=== PATIENT | male | born 1960 | race Caucasian/White ===

== ENCOUNTER → 2019-09-19 08:04 | Outpatient (CLI) | payer OTHER, SELFPAY ==
--- NOTE | ~2019-09-19 | MR_ITS ---
EXAMINATION: MR cervical spine wo con DATE: 09/19/2019 08:54 INDICATION: Cervicalgia. TECHNIQUE: Magnetic resonance imaging (MRI) of the cervical spine was performed without intravenous c ontrast. Sequences included sagittal T2-weighted FSE, sagittal T2-weighted FS FSE, sagittal T1-weight ed FSE, axial MERGE and axial T2-weighted FSE. COMPARISON: None FINDINGS: No interval change in a slight kyphosis of the cervical spine and 2 mm retrolisthesis of C6 on C7. Un changed minimal chronic anterior wedging of C6. Vertebral body heights are otherwise normal. Normal b one marrow signal throughout. Mild disc height loss at C5-C6 and moderate to severe disc height loss at C6-C7. Cord signal intensity is normal. The following disc levels are specifically discussed: C2-C3: Disc is mildly bulging. There is no uncovertebral joint osteoarthritis. There is mild right fa cet joint osteoarthritis. There is no neural foraminal stenosis. There is no central canal stenosis. C3-C4: Annular fissure and unchanged small central disc protrusion There is mild left uncovertebral j oint osteoarthritis. There is no facet joint osteoarthritis. There is no neural foraminal stenosis. T here is mild central canal stenosis. C4-C5: Disc is mildly bulging. There is no uncovertebral joint osteoarthritis. There is mild bilatera l facet joint osteoarthritis. There is no neural foraminal stenosis. There is mild central canal sten osis. C5-C6: Disc is bulging. There is mild bilateral uncovertebral joint osteoarthritis. There is mild lef t facet joint osteoarthritis. There is no neural foraminal stenosis. There is mild central canal sten osis with mild indentation of the ventral surface of the cord. C6-C7: Disc is bulging. There is moderate bilateral uncovertebral joint osteoarthritis. There is mild left facet joint osteoarthritis. There is mild left and moderate right neural foraminal stenosis. Th ere is mild central canal stenosis with indentation of the central to left side of the ventral surfac e of the cord. C7-T1: The disc does not extend beyond the endplate margin. There is no uncovertebral joint osteoarth ritis. There is moderate right and severe left facet joint osteoarthritis. There is mild bilateral ne ural foraminal stenosis. There is no central canal stenosis. IMPRESSION: 1. Negligible progression in mild upper to mid and severe lower cervical spondylosis. Reviewed, dictated and finalized at location A. IMPRESSION: 1. Negligible progression in mild upper to mid and severe lower cervical spondy losis.
--- NOTE | ~2019-09-19 | XR_ITS ---
XR lumbar spine 2-3V DATE: 09/19/2019 09:01 INDICATION: Low back pain TECHNIQUE: Standing AP, lateral and coned lateral lumbosacral views COMPARISON: None FINDINGS: Diffuse osteopenia. There is mild levoscoliosis. Normal alignment of the lumbar spine. No fracture or bone destruction or spondylolisthesis. The lumba r pedicles are intact. There is moderate loss of interspace height at L4-5 and L5-S1. The sacroiliac joints appear normal. IMPRESSION: Osteopenia Mild levoscoliosis Moderately prominent loss of interspace height at L4-5 and L5-S1 Reviewed, dictated and finalized at location A.
== END ==
PROVIDERS: Visit Provider Internal Medicine
DX: M54.2 Cervicalgia (principal); M54.5 Low back pain; M47.812 Spondylosis without myelopathy or radiculopathy, cervical region; M85.88 Other specified disorders of bone density and structure, other site; M41.86 Other forms of scoliosis, lumbar region; R29.890 Loss of height
CPT/HCPCS: 72100; 72141

== ENCOUNTER 2019-10-10 08:51 | Outpatient (CLI) | payer OTHER, SELFPAY ==
--- NOTE | ~2019-10-10 | DEXA_ITS ---
Bone Density Report Name: Ildefonso Jennings Age: 58 Sex: Male Ethnicity: White Date of : 1960 Indication: osteopenia; prior fracture; Referring Provider: ROB FOSTER Study: Bone densitometry was performed. Exam Date: October 10, 2019 Accession number: [id number] Bone Density: Region BMD T-score Z-score Classification AP Spine (L1, L2, L4) 0.962 -1.1 -0.6 Osteopenia Femoral Neck (Left) 0.958 0.2 1.1 Normal Total Hip (Left) 1.063 0.2 0.6 Normal Total Hip Bilateral Avg 1.120 0.5 1.0 Normal Femoral Neck (Right) 0.998 0.5 1.4 Normal Total Hip (Right) 1.175 0.9 1.3 Normal World Health Organization criteria for BMD impression classify patients as: Normal (T-score at or above -1.0), Osteopenia (T-score between -1.0 and -2.5), or Osteoporosis (T-score at or below -2.5). 10-year Fracture Risk(1): Major Osteoporotic Fracture 6.8% Hip Fracture 0.1% Reported Risk Factors: [place] (), Neck BMD=0.958, BMI=26.4, previous fracture (1) FRAX(R) Version 3.08. Fracture probability calculated for an untreated patient. Fracture probability may be lower if the patient has received treatment. Previous Exams: Region Exam Age BMD T-score BMD Change BMD Change Date g/cm2 vs Baseline vs Previous AP Spine(L1, L2, L4) 10/10/2019 58 0.962 -1.1 -0.002(-0.2%) -0.002(-0.2%) 09/19/2018 57 0.964 -1.1 Total Hip(Left) 10/10/2019 58 1.063 0.2 -0.007(-0.7%) -0.007(-0.7%) 09/19/2018 57 1.070 0.2 Total Hip(Right) 10/10/2019 58 1.175 0.9 0.004(0.3%) 0.004(0.3%) 09/19/2018 57 1.172 0.9 *Denotes significance at 95% confidence level, LSC for AP Spine = 0.022 g/cm2, LSC for Total Hip = 0.027 g/cm2 Clinical Information Provided by Patient: Has had a low trauma fracture Patient maximum height was 71.0 Drinks caffeinated beverages Impression: The patient has low bone mass, based on the Total Spine T-score. The patient has an estimated ten-year risk of hip fracture of 0.1% and an estimated ten-year risk of major fracture of 6.8%, based on the WHO FRAX algorithm. The patient has risk factors, including: previous fracture. No significant bone loss was observed. Discussion: BONE DENSITY IS LOW AT ONE OR MORE SKELETAL SITES. This patient's lowest T-score is low at one or more skeletal sites. It meets the World Health Organization's (WHO) criteria for ?low bone mass? (T-score between -1.0 and -2.5). The patient's 10-year risk
== END 2019-10-10 08:52 | disposition home or self-care (01) ==
PROVIDERS: PCP Internal Medicine; Visit Provider Internal Medicine
DX: M85.88 Other specified disorders of bone density and structure, other site (principal)
CPT/HCPCS: 77080

== ENCOUNTER 2019-10-13 07:45 | Outpatient (CLI) | payer OTHER, SELFPAY ==
--- NOTE | ~2019-10-13 | NM_ITS ---
EXAMINATION: NM stress w perf spect multi DATE: 10/13/2019 10:37 INDICATION: Chest pain, unspecified. TECHNIQUE: Rest images were obtained following intravenous administration of 11 mCi Tc99m tetrofosmin (Myoview). The patient performed an exercise activity. At peak exercise, 32.5 mCi Tc99m tetrofosmin (Myoview) was administered intravenously, and stress images were obtained. Data was reconstructed int o short axis and horizontal and vertical long axis SPECT images. Gated SPECT images were also obtaine d. COMPARISON: Myocardial perfusion imaging 05/18/2014 FINDINGS: There is no definite reversible or fixed perfusion abnormality to suggest ischemia or infar ction. There is no segmental wall motion abnormality. Left ventricular ejection fraction measures > 70%. IMPRESSION: 1. No definite ischemia or infarct. 2. Normal left ventricular ejection fraction measuring >70%. Reviewed, dictated and finalized at location A.
--- NOTE | 2019-10-13 08:31 | EST_ITS ---
Patient Info Name: Ildefonso Jennings Age: 58 years : 1960 Gender: Male Ht: 69 in Wt: 180 lbs BSA: 2.01 m2 Exam Date: 10/13/2019 8:58 AM Exam Location: [facility] Stress Patient Status: Outpatient Admit Date: 10/13/2019 Staff Ordering Physician: Zaki Siddiqui DO Attending Provider: Zaki Siddiqui DO Exercise Technologist: Radha An RDCS Exercise Physician: Christian Sifuentes DO Exam Type: CA stress test treadmill w NM Study Info Indications R07.9 - Chest pain, unspecified A pharmacological stress test was performed. Summary 1. 1. Negative Roberto exercise stress test for ischemic ST changes by ECG criteria. 2. 2. Good functional capacity, achieving 12 METs of workload. 3. 3. Appropriate HR response to exercise. 4. 4. Appropriate HR recovery at 1 minute post exercise. 5. 5. Nuclear scan to follow and will be reported separately. Please correlate with it. 6. 6. Patient informed of the above results. Protocol: Roberto Stress ECG Details Stage: REST Duration (min): 5 min : 45 sec Speed (mph): 0.0 Grade (%): 0 HR (bpm): 64 SBP (mmHg): 122 DBP (mmHg): 82 METS: --- Stage: REST Duration (min): 9 min : 21 sec Speed (mph): 0.0 Grade (%): 0 HR (bpm): 77 SBP (mmHg): 122 DBP (mmHg): 82 METS: --- Stage: STAGE 1 Duration (min): 1 min : 0 sec Speed (mph): 1.7 Grade (%): 10 HR (bpm): 93 SBP (mmHg): 122 DBP (mmHg): 82 METS: --- Stage: STAGE 1 Duration (min): 2 min : 0 sec Speed (mph): 1.7 Grade (%): 10 HR (bpm): 94 SBP (mmHg): 122 DBP (mmHg): 82 METS: --- Stage: STAGE 1 Duration (min): 3 min : 0 sec Speed (mph): 1.7 Grade (%): 10 HR (bpm): 100 SBP (mmHg): 141 DBP (mmHg): 92 METS: --- Stage: STAGE 2 Duration (min): 1 min : 0 sec Speed (mph): 2.5 Grade (%): 12 HR (bpm): 105 SBP (mmHg): 141 DBP (mmHg): 92 METS: --- Stage: STAGE 2 Duration (min): 2 min : 0 sec Speed (mph): 2.5 Grade (%): 12 HR (bpm): 104 SBP (mmHg): 135 DBP (mmHg): 90 METS: --- Stage: STAGE 2 Duration (min): 3 min : 0 sec Speed (mph): 2.5 Grade (%): 12 HR (bpm): 111 SBP (mmHg): 135 DBP (mmHg): 90 METS: --- Stage: STAGE 3 Duration (min): 1 min : 0 sec Speed (mph): 3.4 Grade (%): 14 HR (bpm): 127 SBP (mmHg): 118 DBP (mmHg): 70 METS: --- Stage: STAGE 3 Duration (min): 2 min : 0 sec Speed (mph): 3.4 Grade (%): 14 HR (bpm): 128 SBP (mmHg): 118 DBP (mmHg): 70 METS: --- Stage: STAGE 3 Duration (min): 3 min : 0 sec Speed (mph): 3.4 Grade (%): 14 HR (bpm): 131 SBP (mmHg): 132 DBP (mmHg): 73 METS: --- Stage: STAGE 4 Duration (min): 1 min : 0 sec Speed (mph): 4.2 Grade (%): 16 HR (bpm): 154 SBP (mmHg): 132 DBP (mmHg): 73 METS: --- Stage: STAGE 4
== END 2019-10-13 07:46 | disposition home or self-care (01) ==
PROVIDERS: PCP Internal Medicine; Visit Provider Internal Medicine
DX: R07.9 Chest pain, unspecified (principal)
CPT/HCPCS: 78452; 93017; A9502

== ENCOUNTER → 2019-11-18 10:39 | Outpatient (CLI) | payer OTHER, SELFPAY ==
--- NOTE | ~2019-11-18 | MR_ITS ---
EXAMINATION: MR lumbar spine wo con EXAM DATE: 11/18/2019 11:23 INDICATION: Lumbar radiculopathy. Low back pain. History of scoliosis and bulging discs. TECHNIQUE: Multi-sequential, multiplanar MR images of the lumbar spine were obtained without contrast . Sagittal T1, T2, T2 fat saturation images. Axial T2 weighted images. Correlation is made to lumba r x-ray 09/19/2019. FINDINGS: There is mild to moderate disc disease L4-5 and L5-S1, mild at L2-3 and L3-4. The conus med ullaris terminates at the T12-L1 level and has normal signal intensity and morphology. Large incompl etely imaged left renal cystic lesion, probably a cyst correlating to a prior CT from 2016. There is a 1 cm T1 and T2 hypointense lesion in the L3 vertebral body, could be an atypical hemangioma-no evid ence of osteoblastic lesion and lumbar spine from September. The vertebral bodies are aligned in the AP dimension. Paraspinal soft tissue is unremarkable. Level by level evaluation: T12-L1: Disc does not extend beyond the endplate margin. Facet arthropathy: None. Neural foraminal stenosis: No stenosis. Central canal stenosis: No stenosis. L1-L2: Disc does not extend beyond the endplate margin. Facet arthropathy: None. Neural foraminal stenosis: No stenosis. Central canal stenosis: No stenosis. L2-L3: There is a mild diffuse disc bulge. Facet arthropathy: Mild. Neural foraminal stenosis: No stenosis. Central canal stenosis: No stenosis. L3-L4: There is a mild to moderate diffuse disc bulge. Facet arthropathy: Mild to moderate. Neural foraminal stenosis: Mild bilateral. Central canal stenosis: Mild. L4-L5: There is a mild to moderate diffuse disc bulge, superimposed left central protrusion narrowing lateral recess Facet arthropathy: Mild. Neural foraminal stenosis: Mild to moderate bilateral. Central canal stenosis: Moderate, particularly left lateral recess from the protrusion. L5-S1: There is a mild to moderate diffuse disc bulge. Facet arthropathy: Mild. Neural foraminal stenosis: Moderate left, mild right. Central canal stenosis: Mild. IMPRESSION: 1. L4-5 moderate sized left central protrusion causing mass effect on traversing left L5 nerve root i n the lateral recess. Correlate clinically for muscle weakness of great toe extension and sensory c hange of the medial foot and great toe. 2. Indeterminate L3 bone lesion, statistically most likely atypical hemangioma given no evidence of o steoblastic disease on x-ray 2 months ago and assuming absence of known primary malignancy. Reviewed, dictated and finalized at location B. IMPRESSION: 1. L4-5 moderate sized left central protrusion causing mass effect on traversin g left L5 nerve root in the lateral recess. Correlate clinically for muscle w eakness of great toe extension and sensory change of the medial foot and great toe. 2. Indeterminate L3 bone lesion, statistically most likely atypical hemangioma given no evidence of osteoblastic disease on x-ray 2 months ago and assuming ab sence of known primary malignancy.
== END ==
PROVIDERS: PCP Internal Medicine; Visit Provider Nurse Practitioner
DX: M54.16 Radiculopathy, lumbar region (principal); M51.26 Other intervertebral disc displacement, lumbar region
CPT/HCPCS: 72148

== ENCOUNTER 2020-04-14 08:21 | Outpatient (CLI) | payer BC, SELFPAY ==
--- NOTE | ~2020-04-14 | US_ITS ---
EXAMINATION: US arterial ankle brachial ind DATE: 04/14/2020 09:10 INDICATION: Cold feet. Numbness and pain as well as cramping and spasms at the lower limbs. Facet dis ease risk factors of hypercholesterolemia, hypertension and prior smoking TECHNIQUE: Segmental pressures and plethysmographic and Doppler waveforms of the brachial and lower e xtremity arteries were obtained. COMPARISON: None. FINDINGS: Right and left brachial artery pressures of 122 mm Hg and 118 mm Hg, respectively, are concordant (no rmal difference <= 30 mmHg). The right ankle-brachial index (PARISA) is 1.24 (normal >= 0.9-1.0). The right great toe-brachial index (TBI) is 0.80 (normal >= 0.65). Arterial Doppler waveforms are are triphasic at the right posterior t ibial artery and biphasic at the right dorsalis pedis artery, both with brisk systolic upstrokes. The left PARISA is 1.27. The left TBI is 0.95. Arterial Doppler waveforms are triphasic with brisk systo lic upstrokes at both the left posterior tibial and dorsalis pedis arteries. IMPRESSION: 1. No significant arterial occlusive disease with normal bilateral ABIs and TBIs. Reviewed, dictated and finalized at location B. OR IMPRESSION: 1. No significant arterial occlusive disease with normal bilateral ABIs and TBI s.
== END 2020-04-14 08:22 | disposition home or self-care (01) ==
PROVIDERS: PCP Internal Medicine; Visit Provider Internal Medicine
DX: R25.2 Cramp and spasm (principal)
CPT/HCPCS: 93922

== ENCOUNTER 2020-11-02 00:25 | Day surgery (SDC) | payer BC, SELFPAY ==
[2020-10-22 14:02] VITALS: BMI 24.4
[2020-11-02 08:36] VITALS: BP 116/80; PULSE 66; RESP 16; TEMP 36.4; O2SAT 98; BMI 24.6
[2020-11-02] MEDS: LACTATED RINGERS 1,000 ML 150 ML IV CONT (08:44)
--- NOTE | 2020-11-02 09:06 | WPDGICN ---
Assessment and Plan Assessment and plan (1) History of colon polyps: Code(s): Z86.010 - Personal history of colonic polyps Status: Acute Assessment and Plan: Patient has a history of colon polyp removed by Dr. Gray 2016. Plan is for surveillance exam now and consider this if 5 year intervals in the future. (2) Hemorrhoid: Code(s): K64.9 - Unspecified hemorrhoids Status: Acute Assessment and Plan: Patient has a bump in his anus he attributes to a hemorrhoid he will reduce it on his own. Plan to evaluate this at the time of endoscopy. High-fiber diet advised further recommendations may be given after endoscopy. (3) Nausea: Code(s): R11.0 - Nausea Status: Acute Assessment and Plan: Patient notes vague epigastric discomfort and nausea. He is not acheived relief with acid suppression. Plan is to pursue EGD to assess more thoroughly. Further recommendations will be given after endoscopy. GI Consult Note Consult date/time: 11/02/20 09:06 HPI: Ildefonso Jennings is a 59 year old male Presents for GI endoscopy. Patient reports that he had an adenoma in the colon removed by Dr. Gray in 2017. His current weight appetite bowel movements are normal. He denies any blood in his stools. He does occasionally notice a bump at the anus that he attributes to a hemorrhoid. He wishes to eventually have this removed. family history is significant that his sister had colon polyps. Patient additionally complains of ongoing nausea. He has found minimal relief for this. Feels and empties spot in his stomach. Has tried various antacids with no relief of symptoms. No improvement with Pepcid. He was briefly given a trial of omeprazole but this made his stomach feel worse so he has stopped these medications. Patient presents today for both colonoscopy and EGD. Review of Systems Review of Systems: All systems reviewed & are unremarkable except as noted in HPI and below PMFSH Past Medical History Medical History (Updated 11/02/20 @ 09:08 by Urban Daniel MD) Hypogonadism Family History Family History Father Cerebrovascular accident Family history of malignant neoplasm of stomach Family history of dementia Sibling Acute myocardial infarction Grandparent Cerebrovascular accident Family history of lung cancer Mother Family history of dementia Other Hypertension Social History Social History Smoking status: Never smoker Second hand tobacco smoke exposure: No Alcohol intake: current Alcohol use details: socially Substance use: never Substance use type: does not use Living arrangements: with family Spiritual care concerns: No Meds Home Medications and Allergies Home Medications Medication Instructions Recorded Confirmed Type hydrocodone 5 mg-acetaminophen 325 1 tablet PO Q12H PRN #20 tablet 12/19/19 10/22/20 Rx mg tablet lorazepam 1 mg tablet 1 mg PO DAILY PRN #90 tablet 08/13/20 10/22/20 Rx albuterol sulfate 90 mcg/actuation 1 puff INHALATION Q4H PRN #8.5 g 08/17/20 10/22/20 Rx aerosol inhaler omeprazole 20 mg capsule,delayed 20 mg PO DAILY #30 cap 10/07/20 10/22/20 Rx release benazepril 20 mg PO DAILY 10/22/20 10/22/20 History rosuvastatin 20 mg PO DAILY 10/22/20 10/22/20 History Allergies Allergy/AdvReac Type Severity Reaction Status Date / Time NSAIDS (Non-Steroidal AdvReac Intermediate Upset Verified 11/02/20 08:35 Anti-Inflamma stomach/pain tramadol AdvReac Intermediate Upset Verified 11/02/20 08:35 stomach/pain Vital Signs Vital Signs - 24 hr 11/02/20 08:36 Temperature 97.5 F L Pulse Rate 66 Respiratory Rate 16 Blood Pressure 116/80 Pulse Oximetry 98 Exam Narrative: Physical exam reveals patient to be alert. Vital signs stable. HEENT exam is unremarkable. Pat
--- NOTE | 2020-11-02 09:15 | WPDANESEPPF ---
Anes - Initial Pre Proc Eval Procedure: Operation Date: 11/02/20 09:30 Proposed Procedures p Esophagogastroduodenoscopy & Screening Colonoscopy - Urban Daniel MD Date/Time: 11/02/20 09:15 Surgeon: Urban Daniel MD Pre Op Diagnosis: hx of colon polyps, nausea/epigastric pain Patient Data Age: 59 Gender: M Height: 1.8 m Weight: 80.2 kg Last Vital Signs Temp 97.5 F L 11/02/20 08:36 Pulse 66 11/02/20 08:36 Resp 16 11/02/20 08:36 BP 116/80 11/02/20 08:36 Pulse Ox 98 11/02/20 08:36 Allergies Allergy/AdvReac Type Severity Reaction Status Date / Time NSAIDS (Non-Steroidal AdvReac Intermediate Upset Verified 11/02/20 08:35 Anti-Inflamma stomach/pain tramadol AdvReac Intermediate Upset Verified 11/02/20 08:35 stomach/pain Home Medications Medication Instructions Recorded Confirmed Type hydrocodone 5 mg-acetaminophen 325 1 tablet PO Q12H PRN #20 tablet 12/19/19 10/22/20 Rx mg tablet lorazepam 1 mg tablet 1 mg PO DAILY PRN #90 tablet 08/13/20 10/22/20 Rx albuterol sulfate 90 mcg/actuation 1 puff INHALATION Q4H PRN #8.5 g 08/17/20 10/22/20 Rx aerosol inhaler omeprazole 20 mg capsule,delayed 20 mg PO DAILY #30 cap 10/07/20 10/22/20 Rx release benazepril 20 mg PO DAILY 10/22/20 10/22/20 History rosuvastatin 20 mg PO DAILY 10/22/20 10/22/20 History Patient hx anesthesia problems: none Family hx anesthesia problems: none PMFSH Past Medical History Medical History (Updated 11/02/20 @ 09:08 by Urban Daniel MD) Hypogonadism Family History Family History Father Cerebrovascular accident Family history of malignant neoplasm of stomach Family history of dementia Sibling Acute myocardial infarction Grandparent Cerebrovascular accident Family history of lung cancer Mother Family history of dementia Other Hypertension Social History Social History Smoking status: Never smoker Second hand tobacco smoke exposure: No Alcohol intake: current Alcohol use details: socially Substance use: never Substance use type: does not use Living arrangements: with family Spiritual care concerns: No Anes - Eval Final PreProcedure Day of Procedure 11/02/20 09:15 Patient weight: normal Heart: regular rate and rhythm Lungs: clear to auscultation Airway: Mallampati scale class II Neurological: alert and oriented Last oral intake: >/= 8 hours ASA classification: III Emergent: no Anesthetic plan: proceed Anesthesia type and monitoring: general GIVS and standard monitoring Informed Consent: The patient's anesthetic plan and its attendant risks and benefits were discussed with the patient/family/POA. Questions were solicited and answers provided to the satisfaction of the patient/family/POA.
[2020-11-02 10:19] VITALS: BP 80/49; PULSE 58; RESP 22; O2SAT 99
[2020-11-02 10:29] VITALS: BP 104/76; PULSE 77; RESP 15; O2SAT 100
[2020-11-02 10:39] VITALS: BP 102/74; PULSE 62; RESP 16; O2SAT 100
--- NOTE | 2020-11-02 16:20 | SUR.OPER ---
EGD start time 954. EGD end time 956. Colonoscopy start time 1005. Colonoscopy end time 1015.
== END 2020-11-02 11:15 | disposition home or self-care (01) ==
PROVIDERS: PCP Internal Medicine; Visit Provider Internal Medicine Gastroenterology
PROC: 0DJ08ZZ Inspection of Upper Intestinal Tract, Via Natural or Artificial Opening Endoscopic (ICD-10-PCS; CPT 43235; principal; 2020-11-02 09:30)
DX: Z12.11 Encounter for screening for malignant neoplasm of colon (principal); K63.5 Polyp of colon; K57.30 Diverticulosis of large intestine without perforation or abscess without bleeding; K64.8 Other hemorrhoids; R11.0 Nausea; R10.13 Epigastric pain; E29.1 Testicular hypofunction
CPT/HCPCS: 45385; 43239; 87081; 88305; J2001; J2704; J7120

== ENCOUNTER → 2021-10-26 10:41 | Outpatient (CLI) | payer BC, SELFPAY ==
--- NOTE | ~2021-10-26 | XR_ITS ---
EXAMINATION: XR chest 2V Exam Date/Time: 10/26/2021 11:15 CDT HISTORY: R63.4 - Abnormal weight loss Comparison: 05/18/2014. RESULT: Lines, tubes, and devices: None. Lungs and pleura: Clear. Cardiomediastinal silhouette: Increased density and size of the right hilar region. Other: No acute osseous or upper abdominal finding. IMPRESSION: Questionable right hilar mass, recommend CT of the chest with contrast for further evaluation. Reviewed, dictated and finalized at location K. IMPRESSION: Questionable right hilar mass, recommend CT of the chest with contrast for furt her evaluation.
== END ==
PROVIDERS: PCP Internal Medicine; Visit Provider Internal Medicine
DX: R63.4 Abnormal weight loss (principal)
CPT/HCPCS: 71046

== ENCOUNTER → 2021-11-03 09:18 | Outpatient (CLI) | payer BC, SELFPAY ==
--- NOTE | ~2021-11-03 | CT_ITS ---
EXAMINATION: CT diagnostic chest w con DATE: 11/03/2021 09:43 INDICATION: Possible right hilar mass. TECHNIQUE: Computed tomography (CT) of the chest was performed with 75 cc Omnipaque 350 intravenous c ontrast. The dose-length product was 320.96 mGy-cm. Automated exposure control and iterative reconstr uction technique were employed. COMPARISON: Chest x-ray dated 10/26/[address] abdomen dated 08/30/2016 FINDINGS: Heart size normal. No significant pleural or pericardial effusion. No thoracic lymphadenopa thy. There are multiple large cyst in the partially visualized left kidney. There are calcified granu didi of the spleen. There are calcified granulomas in the mediastinum and right lung, consistent wit h chronic granulomatous disease. No endobronchial lesions. No focal airspace consolidation. No right hilar mass is identified. No pneumothorax. No acute osseous abnormality. IMPRESSION: 1. No evidence for hilar mass. No acute cardiopulmonary disease. Reviewed, dictated and finalized at location A.
== END ==
PROVIDERS: Visit Provider Internal Medicine
DX: R91.8 Other nonspecific abnormal finding of lung field (principal)
CPT/HCPCS: 71260; Q9967

== ENCOUNTER → 2022-04-28 11:55 | Outpatient (CLI) | payer BC, SELFPAY ==
--- NOTE | ~2022-04-28 | MR_ITS ---
EXAMINATION: MR lumbar spine wo/w con DATE: 04/28/2022 12:41 INDICATION: Back pain TECHNIQUE: Magnetic resonance imaging (MRI) of the lumbar spine was performed without intravenous con trast. Sequences included sagittal T2-weighted FSE, sagittal T2-weighted FS FSE, sagittal T1-weighted FSE, and axial T2-weighted FSE. COMPARISON: 11/18/2019 FINDINGS: 15 degree lumbar levoscoliosis. Sagittal alignment is normal. Vertebral body heights are normal. No i nterval change in a region of mild decreased T1 signal in the right side of the L3 vertebral body whi ch remains hyperintense to the discs and skeletal muscle and without other abnormal T2 signal or enha ncement on postcontrast imaging most likely either an atypical hemangioma or more likely small region of increased red marrow. Interval progression of now moderate disc height loss at L4-L5 and with lef t-sided predominance at L5-S1. Mild disc height loss at L2-L3 and L3-L4. The conus medullaris termina anshul at L1. There is normal signal in the caudal spinal cord with no abnormally lesions in the central canal. Paravertebral soft tissues are unremarkable. The following disc levels are specifically discu ssed: T12-L1: The disc does not extend beyond the endplate margin. There is mild bilateral facet joint oste oarthritis. There is no neural foraminal stenosis. There is no central canal stenosis. L1-L2: The disc does not extend beyond the endplate margin. There is mild bilateral facet joint osteo arthritis. There is no neural foraminal stenosis. There is no central canal stenosis. L2-L3: Disc is mildly bulging. There is mild bilateral facet joint osteoarthritis. There is mild bila teral neural foraminal stenosis. There is mild central canal stenosis. L3-L4: Disc is bulging. There is hypertrophy of the ligamentum flavum. There is mild left and modera te right facet joint osteoarthritis with likely reactive mild synovial enhancement about the margins of the right facet joint. There is mild to moderate bilateral neural foraminal stenosis. There is mil d central canal stenosis. L4-L5: Disc is bulging with no significant interval change in a superimposed annular fissure and left paracentral centered disc extrusion which extends 8 mm AP, 9 mm craniocaudally and 1.8 cm from left to right. There is hypertrophy of the ligamentum flavum. There is mild to moderate bilateral facet jimenez int osteoarthritis. There is moderate bilateral neural foraminal stenosis. There is moderate left-james ed predominant central canal stenosis. There is narrowing of the lateral recesses, mild on the right and moderate on the left where it exerts mass effect upon the traversing left L5 nerve root. L5-S1: Disc is bulging with annular fissure. There is moderate bilateral facet joint osteoarthritis. There is mild right and moderate left neural foraminal stenosis. There is mild central canal stenosis . IMPRESSION: 1. Slight interval progression in moderate lumbar spondylosis most notable for prominent left paracen tral disc extrusion at L4-L5 which exerts mass effect upon the traversing left L5 nerve root. Reviewed, dictated and finalized at location B. IMPRESSION: 1. Slight interval progression in moderate lumbar spondylosis most notable for prominent left paracentral disc extrusion at L4-L5 which exerts mass effect upo n the traversing left L5 nerve root.
== END ==
PROVIDERS: PCP Internal Medicine; Visit Provider Internal Medicine
DX: M47.816 Spondylosis without myelopathy or radiculopathy, lumbar region (principal); M54.9 Dorsalgia, unspecified
CPT/HCPCS: 72158; A9577

== ENCOUNTER → 2022-08-17 08:21 | Outpatient (CLI) | payer BC, SELFPAY ==
--- NOTE | ~2022-08-17 | US_ITS ---
Abdominal Sonogram: Real-time sonographic imaging of the abdomen was performed. Clinical History: Nausea Findings: The liver appears echogenic, with no evidence of bile duct dilatation. Suggestion of 1.3 c m several hyperechoic lesion in the central liver, suspicious for small hemangioma. Main portal vein demonstrates normal direction of flow. The spleen is normal in size without evidence of focal lesion. The gallbladder is well distended, and appears normal with no evidence of gallstone or wall thicken ing. The common bile duct measures 4 mm. The visualized pancreas, aorta, and IVC are unremarkable. The right kidney measures 10.7 cm in length and the left kidney measures 16.4 cm. There is no hydron ephrosis or renal calculus. Multiple large left renal cysts are present, at least one of which appear s to have internal septations. Impression: Large left renal cysts, at least one of which appears to have internal septations. Small hyperechoic lesion in the liver, most likely small hemangioma. Reviewed, dictated and finalized at location . Impression: Large left renal cysts, at least one of which appears to have internal septatio ns. Small hyperechoic lesion in the liver, most likely small hemangioma.
== END ==
PROVIDERS: PCP Family Medicine
DX: N28.1 Cyst of kidney, acquired (principal); K76.9 Liver disease, unspecified; R11.0 Nausea
CPT/HCPCS: 76700

== ENCOUNTER 2024-06-14 09:13 | Outpatient (CLI) | payer BC, SELFPAY ==
--- NOTE | ~2024-06-14 | XR_ITS ---
Clinical Indication: Wheezing PA and lateral views of the chest: Comparison: 10/26/2021 Findings: The lungs are clear, without evidence of focal consolidation or pleural effusion. Cardiome diastinal silhouette is within normal limits. Bones and soft tissues are unremarkable. Impression: Normal chest. Reviewed, dictated and finalized at location . Impression: Normal chest.
--- NOTE | ~2024-06-14 | MR_ITS ---
MRI of the lumbar spine Clinical History: Radiculopathy Technique: Axial T2-weighted images, and sagittal T1-weighted, T2-weighted, and T2 fat-sat images wer e acquired. COMPARISON: 04/28/2022 Findings: There is no fracture or sublocation of the lumbar spine. Osseous alignment unchanged. No terra ne marrow signal abnormality seen. At L1-L2, there is no disc bulge or herniation. There is mild facet hypertrophy. No spinal canal sten osis or neural foraminal narrowing. At L2-L3, there is mild disc desiccation. There is moderate facet arthropathy. No central canal steno sis or neural foraminal narrowing. L3-L4, there is mild disc desiccation with minimal disc bulge. There is moderate to advanced facet ar thropathy. No central canal stenosis. There is minimal bilateral neural foraminal narrowing. L4-L5, there is degenerative spurring with mild disc bulge and advanced facet arthropathy. No central canal stenosis. There is moderate to advanced left neural foraminal narrowing, and moderate right ne ural foraminal narrowing. At L5-S1, there is degenerative disc narrowing with mild disc bulge and moderate facet arthropathy. N o central canal stenosis. There is severe left neural foraminal narrowing and minimal right neural fo raminal narrowing. Paravertebral soft tissues are unremarkable. Large partially imaged probable left renal cyst. Impression: Moderate degenerative spondylosis, as detailed above, worst at L4-L5 and L5-S1. Reviewed, dictated and finalized at [facility]. Impression: Moderate degenerative spondylosis, as detailed above, worst at L4-L5 and L5-S1.
== END 2024-06-14 09:14 | disposition home or self-care (01) ==
PROVIDERS: PCP Family Medicine; Visit Provider Family Medicine
DX: M47.896 Other spondylosis, lumbar region (principal); M47.897 Other spondylosis, lumbosacral region; Z98.890 Other specified postprocedural states
CPT/HCPCS: 71046; 72148